=== PATIENT | female | born 1965 | race Caucasian/White ===

== ENCOUNTER → 2019-01-08 12:40 | Outpatient (CLI) | payer MEDICARE, SELFPAY | PROVIDERS: Visit Provider Family Medicine | DX: N30.00 Acute cystitis without hematuria (principal) | CPT/HCPCS: 87086 ==

== ENCOUNTER → 2020-12-04 16:21 | Outpatient (CLI) | payer MEDICARE, SELFPAY | PROVIDERS: PCP Emergency Medicine; Visit Provider Nurse Practitioner | DX: Z11.52 Encounter for screening for COVID-19 (principal); U07.1 COVID-19 | CPT/HCPCS: C9803; U0003; U0005 ==

== ENCOUNTER → 2021-06-11 16:19 | Outpatient (CLI) | payer MEDICARE, SELFPAY | PROVIDERS: Visit Provider Obstetrics & Gynecology | DX: N89.8 Other specified noninflammatory disorders of vagina (principal) | CPT/HCPCS: 87210 ==

== ENCOUNTER → 2021-07-02 10:15 | Outpatient (POV) | payer MEDICARE, SELFPAY | PROVIDERS: Visit Provider Dermatology | DX: Z00.00 Encounter for general adult medical examination without abnormal findings (principal) ==

== ENCOUNTER → 2021-08-01 14:30 | Outpatient (CLI) | payer MEDICARE, SELFPAY ==
--- NOTE | 2021-08-01 | CA_ITS ---
APPROVED REPORT EXAM: Comprehensive 2D, Doppler, and color-flow Echocardiogram Professor Of Voice: Maxine Grewal RT(R) Ht: 5 ft 8 in Wt: 155lbs BSA: 1.83 BP: 104/74 mmHg Indications: fatigue, hx smoking, family history of HD, SOB, chronic pain, hx of COVID, hx of breast implants with left encapsulation. 2D Dimensions LVOT 1.88 cm (M/F) 1.5-2.5 LA Volume 24.30 mL LA Volume Index 13.27 mL/m2 (M/F) 16-34 M-Mode Dimensions RVDd 2.15 cm (0.9-2.6) LA Diam 2.17 cm (1.9-4.0) LVDd 3.62 cm (3.5-5.7) Ao Diam 2.48 cm (2.0-3.7) LVDs 2.87 cm (3.5-5.7) IVSd 0.61 cm (0.6-1.1) PWd 0.72 cm (0.6-1.1) EF (Teich) 43.10% FS 20.70% EDV (Teich) 55.20 mL ESV (Teich) 31.40 mL LV Diastology E Decel Time 177.00 (160-240 msec) E/A Ratio 0.9 MED E' 8.80 (< 7 cm/sec) E'/MED E' Ratio 6.08 (>14) LAT E' 12.90 (<10 cm/sec) E/LAT E' Ratio 4.15 (>14) Mitral Valve MV E Max Ever. 54.00 (40-130 cm/s) MV A Velocity 63.00 (40-130 cm/s) E/A Ratio 0.85 MV Decel. Time 177.00 (160-240 ms) MV PHT 52.00 ms Left Ventricle Left atrium is normal size, left ventricle is normal size, preserved left ventricular systolic function, estimated ejection fraction 55% with no regional wall motion abnormality, Doppler evidence of impaired LV relaxation seen, tissue Doppler is not indicated above please left atrial pressure. Right Ventricle Right atrium and right ventricle are normal size and contractility. Aortic Valve Aortic valve is minimally thickened and fibrosed there is no aortic stenosis or aortic insufficiency. Mitral Valve Mitral valve is grossly normal, there is trace mitral regurgitation. Tricuspid Valve Tricuspid valve grossly normal, there is trace tricuspid regurgitation, tricuspid regurgitation jet velocity is inadequate for calculation of the right ventricular systolic pressure. Pulmonic Valve Pulmonic valve is poorly visualized. Great Vessels Aortic root is normal size. Inferior vena cava normal 7 normal aspiratory collapse. Pericardium No significant pericardial effusion noted. Conclusion 1. Normal left ventricular size, preserved left ventricular systolic function, estimated ejection fraction 55% with no regional wall motion abnormality, Doppler evidence of impaired LV relaxation seen. 2. Trace mitral and tricuspid regurgitation. 3. No significant pericardial effusion. 4. Inferior vena cava is normal size with normal inspiratory collapse. Electronically signed by : Bhargav Puente MD 08/02/2021 14:50:03
== END ==
PROVIDERS: PCP Family Medicine; Visit Provider Family Medicine
DX: R06.02 Shortness of breath (principal); R53.83 Other fatigue
CPT/HCPCS: 93306

== ENCOUNTER → 2021-08-14 11:54 | Outpatient (CLI) | payer MEDICARE, SELFPAY ==
--- NOTE | 2021-08-14 11:59 | XR_ITS ---
FINAL REPORT CLINICAL HISTORY: soa FINDINGS: PA and lateral views of the chest were obtained. There is no prior exam for comparison. The cardiac and mediastinal silhouettes are within normal limits. There is evidence of granulomatous disease. There is no pleural effusion or pneumothorax. No acute osseous abnormality is identified. A spinal stimulator is present in the posterior canal of the thoracic spine. IMPRESSION: No radiographic evidence of acute cardiac or pulmonary disease. Reviewed, Interpreted and Dictated by Vidya Barillas MD Transcribed by Glo Ramirez Authenticated by Vidya Barillas MD on 08/14/2021 01:21:24 PM [facility]
== END ==
PROVIDERS: PCP Family Medicine; Visit Provider Physician Assistant
DX: R06.02 Shortness of breath (principal)
CPT/HCPCS: 71046

== ENCOUNTER → 2021-09-30 14:30 | Outpatient (CLI) | payer MEDICARE, SELFPAY ==
--- NOTE | 2021-09-30 14:30 | CT_ITS ---
FINAL REPORT CLINICAL HISTORY: lung cancer screening, hx smoker, quit one year ago, smoked 1 pack per day FINDINGS: CTDI vol (mGy): 2.[address] images of the chest were obtained using the low-dose protocol for screening. There are bilateral subglandular breast implants. There is a calcified right hilar lymph node. There is no evidence of mediastinal or hilar mass or adenopathy. No axillary mass or adenopathy is identified. There is biapical pleural and parenchymal scarring. Pleural nodularity is seen at the lung apices. A small cluster of nodules is seen at the right lung apex which is noncalcified measuring 4 mm which is nonspecific and likely post inflammatory. Findings are best seen on images 53-57. There are scattered calcified granulomas bilaterally. Limited imaging of the upper abdomen demonstrates postoperative change of cholecystectomy. IMPRESSION: Small cluster of nodules at the right lung apex, noncalcified measuring 4 mm. Lung RADS category 2. Recommend 12 month followup low-dose CT for further evaluation. Reviewed, Interpreted and Dictated by Bernardino Cesar MD Transcribed by Lizett Murillo Authenticated and [facility]
[2021-09-30 15:35] VITALS: PULSE 74; PULSE 76
== END ==
PROVIDERS: PCP Family Medicine; Visit Provider Internal Medicine Pulmonary Disease
DX: Z87.891 Personal history of nicotine dependence (principal); Z12.2 Encounter for screening for malignant neoplasm of respiratory organs; R06.09 Other forms of dyspnea
CPT/HCPCS: 71271; 94060; 94640; 94727; 94729; 94762

== ENCOUNTER → 2022-02-28 12:23 | Outpatient (CLI) | payer MEDICARE, SELFPAY ==
--- NOTE | 2022-02-28 12:35 | XR_ITS ---
FINAL REPORT CLINICAL HISTORY: PARASTHESIA, no injury , pain on lateral side of foot FINDINGS: Right foot Three views were obtained. There is no acute fracture or dislocation. There are mild degenerative changes. No soft tissue abnormality is identified. IMPRESSION: No acute process. Reviewed, Interpreted and Dictated by Guicho Beck III, MD Transcribed by Marjan Odonnell Authenticated and [facility]
== END ==
PROVIDERS: PCP Family Medicine; Visit Provider Nurse Practitioner Family
DX: M79.671 Pain in right foot (principal); R20.2 Paresthesia of skin
CPT/HCPCS: 73630

== ENCOUNTER → 2022-05-19 12:59 | Outpatient (CLI) | payer MEDICARE, SELFPAY ==
--- NOTE | 2022-05-19 13:00 | CT_ITS ---
FINAL REPORT TECHNIQUE: Thin section axial images were obtained through the right ankle extremity without contrast. Reconstruction images were obtained from the axial data. Exam was performed using dose reduction technique. CLINICAL HISTORY: ankle pain FINDINGS: There is no acute fracture or dislocation. No acute osseous abnormality is identified. Joint spaces are preserved. Achilles tendon is intact. There is no significant joint effusion. Mild soft tissue edema is seen. IMPRESSION: No acute osseous abnormality of the right ankle. Mild soft tissue edema. If pain persists, consider MRI for further evaluation. Reviewed, Interpreted and Dictated by Vidya Barillas MD Transcribed by Lizett Murillo Authenticated and [facility]
== END ==
PROVIDERS: PCP Family Medicine; Visit Provider Podiatrist
DX: M25.371 Other instability, right ankle (principal); M79.671 Pain in right foot; M84.374G Stress fracture, right foot, subsequent encounter for fracture with delayed healing; S86.311A Strain of muscle(s) and tendon(s) of peroneal muscle group at lower leg level, right leg, initial encounter
CPT/HCPCS: 73700

== ENCOUNTER → 2022-10-14 09:58 | Outpatient (POV) | payer MEDICARE, SELFPAY | PROVIDERS: Visit Provider Dermatology | DX: Z00.00 Encounter for general adult medical examination without abnormal findings (principal) ==

== ENCOUNTER → 2022-12-09 11:01 | Outpatient (CLI) | payer MEDICARE, SELFPAY ==
--- NOTE | 2022-12-09 11:10 | XR_ITS ---
FINAL REPORT CLINICAL HISTORY: COSTOCHONDRAL pain, lt shoulder pain COMPARISON: None FINDINGS: LEFT SHOULDER 3 views of the left shoulder were obtained. There is no acute fracture or dislocation. Visualized joint spaces are normally aligned. Soft tissues are unremarkable. There is minimal hypertrophic change of the acromioclavicular joint. IMPRESSION: No acute bony abnormality. Reviewed, Interpreted and Dictated by Bernardino Cesar MD Transcribed by Cheyenne Cannon Authenticated and [facility]
--- NOTE | 2022-12-09 11:10 | XR_ITS ---
FINAL REPORT TECHNIQUE: Chest PA & Lateral CLINICAL HISTORY: COSTOCHONDRAL pain COMPARISON: 08/14/2021 FINDINGS: 2 views of the chest were performed. The heart size is normal. The mediastinum is within normal limits. There is no acute cardiopulmonary process. A calcified granuloma is present in the right hemithorax, unchanged. There are no pleural effusions. There is no pneumothorax. The bony thorax appears intact, with a spinal stimulator device once again noted. IMPRESSION: No acute cardiopulmonary process. Reviewed, Interpreted and Dictated by Bernardino Cesar MD Transcribed by Cheyenne Cannon Authenticated and . [facility]
--- NOTE | 2022-12-09 11:10 | XR_ITS ---
FINAL REPORT TECHNIQUE: Left clavicle 2 views CLINICAL HISTORY: COSTOCHONDRAL pain, lt shoulder pain COMPARISON: None FINDINGS: LEFT CLAVICLE: No acute bony abnormality is identified. No evidence of fracture or dislocation is present. IMPRESSION: Unremarkable 2 views left clavicle. Reviewed, Interpreted and Dictated by Bernardino Cesar MD Transcribed by Cheyenne Cannon Authenticated and . [facility]
== END ==
PROVIDERS: PCP Physician Assistant; Visit Provider Nurse Practitioner Family
DX: R07.1 Chest pain on breathing (principal)
CPT/HCPCS: 71046; 73000; 73030

== ENCOUNTER 2023-06-16 11:34 | Outpatient (POV) | payer MEDICARE, SELFPAY | END 2023-06-16 23:59 | disposition home or self-care (01) | LOC: SC 11:34 | PROVIDERS: PCP Physician Assistant; Visit Provider Dermatology | DX: Z00.00 Encounter for general adult medical examination without abnormal findings (principal) ==

== ENCOUNTER 2023-07-02 14:05 | Outpatient (CLI) | payer MEDICARE, SELFPAY ==
[2023-07-02 14:25] LABS: Basophils # 0.1 K/mm3 (0-0.2); Eosinophils # 0.2 K/mm3 (0.0-0.4); Eosinophils % 2.1 % (0.1-12.0); Hematocrit 43.3 % (37.0-47.0); Hemoglobin 14.1 g/dL (12.2-16.2); Lymphocytes # 2.3 K/mm3 (0.7-4.5); Lymphocytes % 30.1 % (10-50); Mean Corpuscular HGB Conc 32.7 g/dL (31.8-35.4); Mean Corpuscular Hemoglobin 31.8 pg (27.0-31.2); Mean Corpuscular Volume 97.5 fl (81-99); Mean Platelet Volume 8.1 fl (7.4-10.4); Monocytes # 0.4 K/mm3 (0.1-1.0); Monocytes % 5.2 % (1.7-9.3); Neutrophils # 4.8 K/mm3 (1.8-7.8); Neutrophils % 61.6 % (37.0-80.0); Platelet Count 274 K/mm3 (142-424); Red Blood Count 4.44 M/mm3 (4.20-5.40); Red Cell Distribution Width 12.8 % (11.5-17.5); White Blood Count 7.7 K/mm3 (4.8-10.8)
[2023-07-02 14:47] LABS: D-Dimer 0.38 ug/mL (0.0-0.5)
[2023-07-02 15:57] LABS: Free T4 (Free Thyroxine) 0.91 ng/dl (0.78-2.19)
[2023-07-02 16:04] LABS: Chloride 105 mmol/L (98-107); Potassium 5.5 mmoL/L (3.5-5.1); Sodium 141 mmol/L (136-145)
[2023-07-02 16:06] LABS: Bilirubin,Unconjugated 0.2 mg/dL (0.0-1.1); Blood Urea Nitrogen 19 mg/dl (7-17); Estimated Glomerular Filt Rate 85 ml/min (>60); GFR (African American) 103 ML/MIN (>60)
[2023-07-02 16:07] LABS: Alanine Aminotransferase 23 U/L (12-78); Albumin Level 4.7 g/dl (3.5-5.0); Alkaline Phosphatase 68 U/L (38-126); Anion Gap 13.5 mEq/L (5-15); Aspartate Amino Transferase 54 U/L (14-36); Bilirubin,Direct 0.9 mg/dl (0.0-0.4); Bilirubin,Indirect 0.2 mg/dL (0.0-0.9); Bilirubin,Total 1.1 mg/dl (0.2-1.3); Calcium 9.6 mg/dl (8.4-10.2); Carbon Dioxide 28 mmol/L (22.0-30.0); Cholesterol 219 mg/dl (140-200); Glucose 101 mg/dl (74-100); Magnesium 2.1 mg/dl (1.6-2.3); Total Protein,Serum 7.8 g/dl (6.3-8.2); Triglycerides 129 mg/dl (30-150); VLDL Cholesterol 26 mg/dL (0-40)
[2023-07-02 16:08] LABS: Chol/HDL Ratio 3.8 (1-3.5); HDL Cholesterol 57 mg/dl (40-60)
[2023-07-02 16:19] LABS: Direct LDL Cholesterol 104.74 mg/dL (100-129)
[2023-07-02 16:38] LABS: Thyroid Stimulating Hormone 1.26 uIU/mL (0.465-4.68)
== END 2023-07-02 23:59 | disposition home or self-care (01) ==
PROVIDERS: PCP Family Medicine; Visit Provider Nurse Practitioner
DX: R00.0 Tachycardia, unspecified (principal); R53.83 Other fatigue; R94.31 Abnormal electrocardiogram [ECG] [EKG]; R06.00 Dyspnea, unspecified; R07.9 Chest pain, unspecified
CPT/HCPCS: 36415; 80048; 80061; 80076; 83735; 84439; 84443; 85025; 85378; 93225

== ENCOUNTER 2023-07-06 11:20 | Outpatient (CLI) | payer MEDICARE, SELFPAY ==
--- NOTE | 2023-07-06 11:24 | XR_ITS ---
FINAL REPORT TECHNIQUE: Chest PA & Lateral CLINICAL HISTORY: SOA COMPARISON: 12/09/2022 FINDINGS: 2 views of the chest were performed. The heart size is normal. The mediastinum is within normal limits. There is no acute cardiopulmonary process. There are no pleural effusions. There is no pneumothorax. The bony thorax appears intact. A spinal stimulator is noted overlying the lower thoracic spine. There is dense calcification present a right hilar node. IMPRESSION: No acute cardiopulmonary process. Reviewed, Interpreted and Dictated by Bernardino Cesar MD Transcribed by Cheyenne Cannon Authenticated and [facility]
== END 2023-07-06 23:59 ==
LOC: RAD 11:21
PROVIDERS: PCP Family Medicine; Visit Provider Nurse Practitioner Family
DX: R06.02 Shortness of breath (principal)
CPT/HCPCS: 71046

== ENCOUNTER 2023-07-10 11:48 | Outpatient (CLI) | payer MEDICARE, SELFPAY ==
--- NOTE | 2023-07-10 | CA_ITS ---
APPROVED REPORT Exam: Pharmacologic Technologist: Zamzam Page, Ht: 5 ft 8 in Wt: 158 lbs BSA: 1.85 m2 HR: 86 bpm BP: 106/60 mmHg Rhythm: NSR Medical History Medications: Metoprolol Succinate,,,,, Albuterol,,,,, Hydrocodone Acetaminophen,,,,, Cardiac Risk Factors: HTN, Smoking Stress Test Details Test: LEXISCAN HR Resting HR: 103 bpm Max Heart Rate (APMHR): 160 bpm Max HR Achieved: 130 bpm Target HR (85% APMHR): 136 bpm % of APMHR: 81 Recovery HR: 122 bpm BP Resting BP: 106/60 mmHg Max BP: 130/58 mmHg Recovery BP: 122.0/62.0 mmHg ECG Resting ECG: NSR Clinical Exercise duration: 04:00 min Highest Stage Achieved: Stress ECG Conclusion During lexiscan pt experinced brief mild SOA and chest discomfort. No arrhythmias were noted. No significant ST changes. Conclusion: Unremarkable lexiscan stress. Myoview images reported separately. Test Summary REST . . . . . . . Sitting REST 04:08 . . 103 . 106/ 60 . . Stage 1 01:00 . . 127 . . . . Stage 2 01:00 . . 128 . 116/ 61 . . Stage 3 01:00 . . 123 . 130/ 58 . . Stage 4 01:00 . . 115 . 123/ 55 . Stop exercise at 04:00 RECOVERY 01:00 . . 122 . . . . RECOVERY 02:00 . . 114 . 122/ 62 . . RECOVERY 03:00 . . 113 . 120/ 57 . . RECOVERY 03:19 . . 106 . 120/ 57 . . Electronically signed by : Brittney Bravo MD 07/13/2023 12:25:11
--- NOTE | 2023-07-10 11:48 | NM_ITS ---
APPROVED REPORT Exam: Nuclear Stress Test Indication: HTN, TOB USER, FM HX, C.P., SOB, PALPITATIONS, FATIGUE Patient Location: Outpatient Stress Tech: Zamzam Page [place] Tech:Radha Rodriguez HUMA RT (R)(N)(M) Ht: 5 ft 7 in Wt: 150 lbs Bra Size: 38C HR: 103 bpm BP: 106/60 mmHg BSA: 1.79 m2 TID: 1.12 BMI: 23.4 History: HTN, TOB USER, FM HX, C.P., SOB, PALPITATIONS, FATIGUE Procedure: Patient received 0.4 mg of intravenous Lexiscan, resting heart rate 103 bpm, resting blood pressure 106/60 mmHg, with Lexiscan maximum heart rate achieved was 130 bpm which is % of the maximum predicted heart rate and blood pressure was 130/58 mmHg. With Lexiscan, patient denied any complaint of chest pain. Cardiac Stress and Resting SPECT Images: Cardiac Stress and Resting SPECT images were obtained using technetium 99m Myoview 31.2 mCi stress and 10.30 mCi at rest. Resting and stress imaging in supine and prone positions demonstrate no evidence of fixed or reversible perfusion defects. Gated imaging demonstrates normal global and regional LV systolic function. LVEF is calculated at 56%. Conclusion: No evidence of fixed or reversible perfusion defects. Gated imaging demonstrates normal global and regional LV systolic function. LVEF is calculated at 56%. Electronically signed by : Brittney Bravo MD 07/13/2023 12:26:05
[2023-07-10] MEDS: SODIUM CHLORIDE 0.9% 10ML SYR (RAD ONLY) 10 ML IV ×2 (12:10→13:30)
[2023-07-10] MEDS: REGADENOSON 0.4MG/5ML SYRINGE 0.400000000000000022 MG IV (13:30)
[2023-07-10] MEDS: ISOTOPE MYOVIEW (PER STUDY) 1 DOSE IV (14:23)
== END 2023-07-10 23:59 ==
LOC: RAD 11:48
PROVIDERS: PCP Family Medicine; Visit Provider Nurse Practitioner
DX: R94.31 Abnormal electrocardiogram [ECG] [EKG] (principal); R53.83 Other fatigue; R06.00 Dyspnea, unspecified; R07.9 Chest pain, unspecified; R00.0 Tachycardia, unspecified
CPT/HCPCS: 78452; 93017; 93018; A9502; J2785

== ENCOUNTER 2023-07-15 12:47 | Outpatient (CLI) | payer MEDICARE, SELFPAY ==
--- NOTE | 2023-07-15 12:52 | CA_ITS ---
APPROVED REPORT EXAM: Comprehensive 2D, Doppler, and color-flow Echocardiogram Rf Technician: ERIC Alexander, RVS Ht: 5 ft 8 in Wt: 158lbs BSA: 1.85 BP: 134/82 mmHg Indications: Chest pain, Left breast implant pain due to encapsulation, COPD, Smoker, HTN, TREVINO 2D Dimensions IVSd 0.70 cm LVEF (Visual) 65.50 % PWd 0.84 cm LA Volume 32.60 mL LVDd 3.77 cm LA Volume Index 17.20 mL/m2 (M/F) 16-34 LVDs 2.44 cm Left Atrium 2.24 cm M-Mode Dimensions LA Diam 2.33 cm (1.9-4.0) EPSs 0.64 cm TAPSE 1.49 (<1.7) LV Diastology E Decel Time 123 (160-240 msec) E/A Ratio 0.95 MED A' 12.60 cm/s LAT A' 10.70 cm/s Aortic Valve CRYSTAL Index 1.37 cm2/m2 AoV Peak Ever. 104.0 (50-130 cm/s) AO Peak GR. 4.40 mmHg AO Mean GR. 2.20 (<5 mmHg) AO VTI 19.1 (18-25 cm) CRYSTAL (VTI) 2.59 (2.5-4.5 cm2) Mitral Valve MV A Velocity 74.0 (40-130 cm/s) E/A Ratio 0.95 Pulmonary Valve PV Peak Velocity 67.0 (50-150 cm/s) Tricuspid Valve TR P. Velocity 174.00 cm/s RAP Estimate 10.00 mmHg RVSP 22.00 mmHg Left Ventricle The left ventricle is normal size. The left ventricular systolic function is normal. The left ventricular ejection fraction is within the normal range. There is normal left ventricular wall thickness. There is normal LV segmental wall motion. The left ventricular diastolic function is normal. LVEF is 60%. Right Ventricle The right ventricle is normal size. The right ventricular systolic function is normal. Atria The left atrium size is normal. The right atrium size is normal. There is no Doppler evidence of interatrial shunt. Aortic Valve The aortic valve opens well. There is no aortic valvular stenosis. No aortic regurgitation is present. Mitral Valve The mitral valve is normal in structure. No evidence of mitral valve stenosis. There is no mitral valve regurgitation noted. Tricuspid Valve The tricuspid valve leaflets are thin and pliable. Trace tricuspid valve regurgitation. There is insufficient TR jet to estimate RVSP. Pulmonic Valve The pulmonary valve is normal in structure. Trace pulmonic regurgitation. Great Vessels The aortic root is normal in size. The ascending aorta is not well visualized. IVC is normal in size and collapses >50% with inspiration. Pericardium There is no pericardial effusion. Other Information Study Quality: Fair Conclusion Normal biventricular systolic function. No significant valvular stenosis or regurgitation. Electronically signed by : Brittney Bravo MD 07/19/2023 18:14:51
== END 2023-07-15 23:59 | disposition home or self-care (01) ==
LOC: RT 12:49
PROVIDERS: PCP Family Medicine; Visit Provider Nurse Practitioner
DX: R94.31 Abnormal electrocardiogram [ECG] [EKG] (principal); R53.83 Other fatigue; R06.00 Dyspnea, unspecified; R07.9 Chest pain, unspecified; R00.0 Tachycardia, unspecified
CPT/HCPCS: 93306

== ENCOUNTER 2023-09-02 06:11 | Outpatient (CLI) | payer MEDICARE, SELFPAY ==
--- NOTE | 2023-09-02 | CT_ITS ---
FINAL REPORT TECHNIQUE: Axial images through the abdomen and pelvis were performed without contrast. This study was performed with techniques to keep radiation doses as low as reasonably achievable, (ALARA). Individualized dose reduction techniques using automated exposure control or adjustment of mA and/or kV according to the patient's size were employed. CLINICAL HISTORY: .rt side abd pain..hematuria FINDINGS: ABDOMEN: There is a 16 mm nodule in the right middle lobe. The heart size is normal. Limited images of the liver are unremarkable. Patient is status post cholecystectomy. There is mild biliary ductal dilatation. Mild vascular calcification is identified. The spleen is normal. No adrenal mass is identified. The aorta is normal in caliber. There is no significant free fluid or adenopathy. There is no nephrolithiasis. There is no hydronephrosis. PELVIS: The appendix is normal. No ureteral stones identified. The urinary bladder is unremarkable. There is no significant free fluid or adenopathy. IMPRESSION: Right middle lobe nodule. Recommend three-month follow-up CT and/or PET-CT. No evidence of nephrolithiasis. Reviewed, Interpreted and Dictated by Guicho Beck III, MD Transcribed by Marjan Odnonell Authenticated and [facility]
== END 2023-09-02 23:59 | disposition home or self-care (01) ==
LOC: RAD 06:12
PROVIDERS: PCP Family Medicine; Visit Provider Nurse Practitioner Family
DX: R10.9 Unspecified abdominal pain (principal)
CPT/HCPCS: 74176

== ENCOUNTER 2023-09-04 10:29 | Outpatient (CLI) | payer MEDICARE, SELFPAY ==
--- NOTE | 2023-09-04 10:34 | MM_ITS ---
PROCEDURE INFORMATION: Exam: MG Bilateral Screening 3D Mammography Exam date and time: 09/04/2023 10:27 AM Age: 58 years old Clinical indication: Screening examination TECHNIQUE: Imaging protocol: Bilateral Screening tomosynthesis and 2D mammography including computer-aided detection (CAD) when performed. COMPARISON: No relevant prior studies available. FINDINGS: MAMMOGRAPHY: Breast composition: The breasts are heterogeneously dense, which may obscure small masses. Mass: None. Architectural distortion: None. Calcifications: No suspicious calcifications. Asymmetric density: None. Skin thickening: None. Axillary adenopathy: None. Implants: Prepectoral saline breast implants are present. IMPRESSION: No mammographic evidence of malignancy. Annual screening is recommended unless otherwise clinically indicated. ASSESSMENT: BI-RADS Category 1: Negative
== END 2023-09-04 23:59 | disposition home or self-care (01) ==
LOC: RAD 10:29
PROVIDERS: PCP Nurse Practitioner Family; Visit Provider Nurse Practitioner Family
DX: Z12.31 Encounter for screening mammogram for malignant neoplasm of breast (principal)
CPT/HCPCS: 77063; 77067

== ENCOUNTER 2023-10-02 07:46 | Outpatient (CLI) | payer MEDICARE, SELFPAY ==
--- NOTE | 2023-10-02 07:53 | CT_ITS ---
FINAL REPORT TECHNIQUE: The patient was injected with IV contrast. Axial images were obtained of the chest by computed tomography. Precontrast images were also obtained. This study was performed with techniques to keep radiation doses as low as reasonably achievable (ALARA). Individualized dose reduction techniques using automated exposure control or adjustment of mA and/or kV according to the patient's size were employed. CLINICAL HISTORY: PULMONARY NODULE 16mm RML found on ct abd/pel on 09/01. compare nodule for growth or any changes. COMPARISON: 09/02/2023 FINDINGS: CT OF THE CHEST WITH AND WITHOUT CONTRAST: There is no axillary adenopathy. There is no mediastinal or hilar adenopathy. Heart size is normal. Mild vascular calcifications are noted. There is no pericardial or pleural effusion identified. Mild scarring is noted. There is a lobular mass in the medial right middle lobe measuring 16 mm, previously measured 16 mm, best seen on image 56. There are several calcified granulomas. There is a 2 mm lateral left lower lobe nodule on image 42. Several other less than 5 mm nodules are noted. There are postoperative changes in the anterior chest. Limited images of the upper abdomen demonstrate no acute findings. The patient is postcholecystectomy. IMPRESSION: No change in the medial right middle lobe 16mm nodule compared to the study from 1 month prior. Recommend [address] scan or PET/CT. Reviewed, Interpreted and Dictated by Guicho Beck III, MD Transcribed by Ruth Jane Authenticated and . [facility]
[2023-10-02 08:21] LABS: Blood Urea Nitrogen 18 mg/dl (7-17); Estimated Glomerular Filt Rate 73 ml/min (>60); GFR (African American) 89 ML/MIN (>60)
[2023-10-02] MEDS: IOPAMIDOL-370 (76%);100ML BOTTLE 75 ML IV (09:54)
[2023-10-02] MEDS: SODIUM CHLORIDE 0.9% 10ML SYR (RAD ONLY) 10 ML IV (09:54)
== END 2023-10-02 23:59 | disposition home or self-care (01) ==
LOC: RAD 07:47
PROVIDERS: PCP Nurse Practitioner Family; Visit Provider Nurse Practitioner Family
DX: R91.1 Solitary pulmonary nodule (principal)
CPT/HCPCS: 36415; 71270; 82565; 84520; Q9967

== ENCOUNTER 2024-03-09 20:32 | Emergency (ER) | payer MEDICARE, SELFPAY ==
[2024-03-09 20:41] VITALS: BP 133/63; PULSE 100; RESP 20; TEMP 36.6; O2SAT 97; BMI 23.5
--- NOTE | 2024-03-09 20:45 | ED_ITS ---
Discharge Plan Disposition Patient Disposition: Home, Self-Care Prescriptions Prescriptions: No Action hydrocodone-acetaminophen 10-325 mg tablet 1 tab PO QID PRN metoprolol succinate [Toprol XL] 25 mg tablet extended release 24 hr 25 mg PO DAILY Qty: 90 3RF levalbuterol tartrate [Xopenex HFA] 45 mcg/actuation HFA aerosol inhaler 2 inh inhalation QID PRN (Reason: shortness of breath or wheezing) 90 Days Qty: 15 3RF Referrals Follow up/Referrals: Marjan Roche APRN [Primary Care Provider] - See instructions Activity Restrictions/Add. Instructions Additional Instructions/Restrictions: Follow-up with primary care doctor. Please return the emerged part with any new, concerning, or worsening symptoms. Clinical Impressions Clinical Impression: Swollen vein Instructions Patient Instructions: DI for Neck Pain Print Language Print Language: Serbian Discharge ED Provider: Kael Power General Adult HPI General Chief complaint: Neck Pain/Injury Stated complaint: spot on forehead , neck pain Time Seen by Provider: 03/09/24 20:36 Mode of Arrival: Ambulatory Source of Information: Patient Limitations: No Limitations Description of Symptoms (Recalled from ER Triage Doc. by RN): neck pain History of Present Illness HPI narrative: This is a 59-year-old female with a past medical history of hypertension and COPD who presents with concern for a swollen vein on her forehead. States that she went to brush her teeth about 30 minutes prior to arrival when she noticed that the vein on the right side of her forehead was more noticeable than it was in the past. She had never noticed this before. States that she was completely asymptomatic at this time and currently denies any other symptoms including headache, vision changes, dizziness. States that her parents made her concerned that she may be having an aneurysm and told her to get the emergency department to be evaluated. Related Data Home Medications ?Medication ?Instructions ?Recorded ?Confirmed hydrocodone 10 mg-acetaminophen 1 tab PO QID PRN 06/11/21 11/24/23 325 mg tablet Previous Rx's ?Medication ?Instructions ?Recorded metoprolol succinate 25 mg 25 mg PO DAILY #90 tabs 07/02/23 tablet,extended release 24 hr (Toprol XL) levalbuterol tartrate 45 2 inh inhalation QID PRN shortness 11/24/23 mcg/actuation aerosol inhaler of breath or wheezing 90 days #15 (Xopenex HFA) grams Allergies Allergy/AdvReac Type Severity Reaction Status Date / Time No Known Allergies Allergy Verified 11/24/23 14:28 [facility] Disclaimer: The information contained in this section may have been updated after the patient was seen, as this information can be updated by other users. Medical History (Updated 03/09/24 @ 20:46 by Kael Power MD) Lung nodule History of smoking 30 or more pack years Dyspnea on exertion Pulmonary emphysema Urinary incontinence COPD (chronic obstructive pulmonary disease) Nerve disorder Surgical History History of spinal surgery Family History Other Cancer Hypertension Social History (Updated 11/24/23 @ 14:32 by Hannah Soto) Smoking Status: Never smoker smoking status stop date: 2019 alcohol intake: never substance use type: denies use current occupational status: other Travel in the last 8 weeks: None number of children: 1 Have you lived/traveled outside [place] in past 30 days?: No Contact w/someone who lives/traveled outside US past 30 days?: No Exposure to someone with infectious disease in past 14 days?: No Do you have a fever (greater than 100.4 F or 38 C)?: No Have you tested positive for COVID-19: No Exposed to someone with COVID-19 in past 14 days?: No Do you have a sore throat?: No Do you have a cough?: No Do you have any weakness?: No Do you have any diarrhea?: No Are you experiencing any unusual bleeding?: No Do you have any muscle aches/pain?: No Do you have any abdominal pain?: No Are you experiencing loss of taste or smell?: No Other Medical History Have you received the Pneumonia Vaccine: No ROS Obtained: Yes All systems reviewed & no additional complaints except as documented Physical Exam General General appearance: alert and in no apparent distress Eye Eye exam: Present normal appearance, PERRL and EOMI Respiratory Respiratory exam: Present normal lung sounds bilaterally; Absent respiratory distress Cardiovascular Cardiovascular exam: Present regular rate and normal rhythm Abdominal Exam Abdominal exam: Present soft and distention; Absent tenderness, guarding or rebound Extremities Exam Extremities exam: Present normal inspection Neurological Exam Neurological exam: Present alert and oriented X3 Skin Skin exam: Present warm and dry Medical Decision Making Medical Records Medical records reviewed: Yes I reviewed the patient's medical records. Screening: Per USPSTF and CDC recommendations, given the prevalence of disease in our region, it is our hospital?s policy to screen for HIV and viral Hepatitis for all patients aged 18 and over and those with ongoing risk factors. Dimitrios Inquiry Pt receiving controlled substance: No Vital Signs: 03/09/24 20:41 Temperature 97.9 F Temperature Source Oral Pulse Rate [Right Brachial] 100 H Respiratory Rate 20 Blood Pressure [Right Arm] 133/63 Blood Pressure Mean [Right Arm] 86 Blood Pressure Source [Right Arm] Automatic Cuff Blood Pressure Position [Right Arm] Sitting 02 Sat by Pulse Oximetry 97 Oxygen Delivery Method Room Air Orders (Tests/Meds): ORDERS Category Date Time Status HIV (1&2) Antibody Rapid Stat Lab 03/09/24 20:43 Ordered Hep C Ab with Reflex to RNA Stat Lab 03/09/24 20:43 Ordered Medical Decision Narrative: In summary, this 59-year-old female with a past medical history of hypertension and COPD presents to the emergency department today with concern for a swollen vein in the right side of her head which she had not noticed before. On initial evaluation patient is completely asymptomatic, normotensive, nontachycardic, afebrile, GCS 15, no focal neurological deficits. Differential diagnosis includes but is not limited to hypertension, anxiety, venous anastomosis. Consi dered CT imaging including CTAs of the head and neck, however patient is completely asymptomatic and has a benign physical exam. Discussed obtaining CT imaging with the patient, however she felt reassured and agreed that this was not necessary. External exam of the patient's forehead and scalp is normal. No workup indicated at this time. Patient ultimately discharged in stable condition. She is to follow-up with her primary care doctor. Critical Care Critical Care Time Critical Care Time: No
[2024-03-09 20:46] VITALS: BP 133/64; PULSE 90; RESP 20; TEMP 36.6; O2SAT 98
== END 2024-03-09 20:52 | disposition home or self-care (01) ==
PROVIDERS: Emergency Provider Student in an Organized Health Care Education/Training Program; PCP Nurse Practitioner Family
DX: R09.89 Other specified symptoms and signs involving the circulatory and respiratory systems (principal)
CPT/HCPCS: 99282

== ENCOUNTER 2024-06-15 09:00 | Outpatient (RCR) | payer MEDICARE, SELFPAY | END 2024-06-15 23:59 | disposition home or self-care (01) | LOC: PT 09:00 | PROVIDERS: PCP Physical Medicine & Rehabilitation Pain Medicine; Visit Provider Physical Medicine & Rehabilitation Pain Medicine | DX: M54.16 Radiculopathy, lumbar region (principal) | CPT/HCPCS: 97110; 97140; 97163; 97530 ==